=== PATIENT | male | born 1990 | race Caucasian/White ===

== ENCOUNTER 2016-05-15 23:24 | Emergency (ER) | payer BC ==
--- NOTE | 2016-05-16 01:08 | ED NURSING NOTES ---
Clinical Report - Nurses [facility] [address] [place] [address] 05/15/2016 23:24 [id number] TRI[facility] Triage time 23:32 May 15 2016. Acuity: LEVEL 3. Chief Complaint: (right flank pain). 23:38 05/15/16. MARGAUX COMA SCORE: Margaux Coma Scale: 15- eyes open spontaneously (4); best verbal response- oriented x 4 (5); best motor response- obeys commands (6). --23:38 Vonnie Stewart R.N. 23:38 05/15/16. BP: 139/90. HR: 71. RR: 18. O2 saturation: 100%. Temp: 97.9 F. Pain level now 5/10. --23:38 Vonnie Stewart R.N. Weight: 86.1 kg stated. Height/Length: 71 inches Per Patient. BMI: 26.5. --23:32 Vonnie Stewart R.N. Medications None. --23:37 Vonnie Stewart R.N. Allergies No Known Drug Allergy. --23:37 Vonnie Stewart R.N. Medication/allergy information source: the patient. --23:38 Vonnie Stewart R.N. History Arrived by private vehicle. Historian: patient. Accompanied by family. Onset. (last Sunday). ( Pain fairly constant with degrees of intensity, worse tonight making him double over in pain. Reports some hematuria.). 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 SOCIAL HX: Never smoker. Occasional alcohol use. No drug use. No infectious disease exposure. ABUSE ASSESSMENT: No report of abuse. SELF HARM ASSESSMENT: A self harm assessment was performed. The patient answered "no" to the question "Have you recently felt down, depressed, or hopeless?", "Have you noticed less interest or pleasure in doing things?", "Do you have thoughts of harming or killing yourself?", "Are you here because you tried to hurt yourself?", "Have you ever tried to hurt yourself before today?", "Have you recently had thoughts about harming or killing others?" and "Do you have any dangerous items in your possession?". NUTRITIONAL RISK ASSESSMENT: The nutritional risk assessment revealed no deficiencies. FUNCTIONAL ASSESSMENT: Functional assessment: no impairments noted. LEARNING NEEDS ASSESSMENT: The learning needs assessment revealed no barriers. SKIN INTEGRITY ASSESSMENT: Skin integrity risk assessment completed. No skin integrity risk identified. --23:38 Vonnie Stewart R.N. PROBLEMS: The following entry was modified by Annabella Calderon MD, 00:20 Reason - not a chronic medical problem <<STRICKEN ENTRY-- Pharyngitis. --07:25 Annabella Calderon MD --END STRIKE>>. ADDITIONAL SURGERIES: Dental Surgery. --23:38 Vonnie Stewart R.N. Interventions ID band on patient. --23:38 Vonnie Stewart R.N. PHYSICAL ASSESSMENT Ambulatory to room. ( scattered small circular bruises all over body, consistant with paint ball vazquez (pt reports playing paint ball 3 days ago)). GENERAL / NEURO / PSYCH: Alert. Oriented X 4. Appears in no acute distress. HEENT: Pupils equal, round and reactive to light. No facial asymmetry noted. Mucous membranes are pink. RESPIRATORY: Respirations not labored. Chest nontender. Breath sounds within normal limits. CVS: Pulses within normal limits. GI / : ( right flank pain, constant, no cvs tenderness). Abdomen soft and nontender and normal bowel sounds. SKIN: Skin intact. Skin is warm and dry. Normal skin turgor. --23:58 Vonnie Stewart R.N. NURSING PROGRESS NOTES 23:32 05/15/16. The initial plan of care for this patient includes an assessment with efforts to address the presence of pain; impairment of the genitourinary system. This plan of care was discussed with the patient. Patient gowned. Reassurance given. Two patient identifiers checked. Call light placed in reach. Side rails up x 1. Bed placed in lowest position. Brakes of bed on. Patient ready for evaluation. --23:53 Vonnie Stewart R.N. 23:53 05/15/16. Patient ID band checked for patient name and birthdate: patient confirmed. Instructions provided to collect clean catch urine and patient verbalized understanding. Clean catch urine collected with return of yellow-colored urine; sample sent to lab for urinalysis. Specimen labeled in the presence of the patient. --23:53 Vonnie Stewart R.N. 00:23 05/16/16. --00:23 Vonnie Stewart R.N. 00:24 05/16/16. Patient transported to [place] by stretcher. (00:May 16 2016). --00:24 Vonnie Stewart R.N. 00:36 05/16/2016 Toradol (Ketorolac Tromethamine) IM 60 mg given. Given in the right gluteus amador. Allergies verified and confirmed 5 rights. --00:38 Vonnie Stewart R.N. 00:36 05/16/2016 Dilaudid (HYDROmorphone HCl PF) IM 1 mg given. Given in the right deltoid. Allergies verified, confirmed 5 rights and sedative warning given to the patient. --00:38 Vonnie Stewart R.N. Patient walked back to ED from CT. --00:39 Vonnie Stewart R.N. DISPOSITION / DISCHARGE 01:05/16/16. Condition at departure: improved and stable. The goals identified in the patient's plan of care were met. --01:18 Vonnie Stewart R.N. 01:05/16/16. BP: 122/87. HR: 77. RR: 16. O2 saturation: 100%. Temp: 98.0 F. Pain level now 3/10. --01:18 Vonnie Stewart R.N. 01:05/16/16. Departure time: :May 16 2016. No learning barriers present. Discharge instructions provided and reviewed with the patient. Reviewed medication(s) side effects, precautions, dosing and course information. Prescription(s) given to the patient. Patient verbalized understanding. Written instructions provided in Tuvaluan. The patient was discharged home and accompanied by family. He left the Emergency Department ambulatory and via private vehicle. Parent driving. --01:24 Vonnie Stewart R.N. Locked/Released at 05/16/2016 1:25 by Vonnie Stewart R.N.
--- NOTE | 2016-05-16 01:08 | ED CLINICAL REPORT ---
Clinical Report - Physicians/Mid Levels [facility] [address] [place] [address] 05/15/2016 23:24 Patient: KATE DOWNS Time Seen: 23:31. Arrived- By private vehicle. Historian- patient. HISTORY OF PRESENT ILLNESS Chief Complaint: R flank pain. It is described as being moderate in degree and in the area of the right flank. The quality is noted to be "pain". No radiation. Onset- about 2 days ago and it is still present. Modifying factors. Not worsened by anything. Not relieved by anything. No bladder dysfunction, bowel dysfunction, sensory loss or motor loss. Additional history - PT states that he has episodes of the pain significantly increasing, which then pass on their own. This is what prompted his visit tonight. Patient notes the possibility of an injury (Pt was playing [employer] the day before this started, but got hit on the L side, not the right.). No other injury. Similar symptoms previously: None. Recent medical care: Not recently seen/assessed. REVIEW OF SYSTEMS No fever, chills, headache, sore throat or cough. No difficulty breathing, chest pain, skin rash, abdominal pain or vomiting. No diarrhea, black stools, difficulty with urination, urinary frequency or bloody stools. The patient has had nausea (- gone). The patient has had hematuria. All systems otherwise negative, except as recorded above. PAST HISTORY Problems: no known problems. Additional Surgeries: Dental Surgery. Medications: None. Allergies: No Known Drug Allergy. SOCIAL HISTORY Never smoker. Occasional alcohol use. No drug use. ADDITIONAL NOTES The nursing notes have been reviewed. PHYSICAL EXAM Vital Signs: 05/15/2016 23:38 BP: 139/90. HR: 71. RR: 18. O2 saturation: 100%. Temp: 97.9 F. Have been reviewed. Appearance: Alert. No acute distress. HEENT: Normal external inspection. Eyes: Pupils equal, round and reactive to light. Neck: Normal inspection. Neck nontender. Painless ROM. CVS: Normal heart rate and rhythm. Heart sounds normal. Pulses normal. Respiratory: No respiratory distress. Breath sounds normal. Abdomen: Normal inspection. Soft and nontender. Back: Normal inspection. No tenderness. Painless ROM. Skin: Skin warm and dry. Normal skin color. No rash. Normal skin turgor. Extremities: Extremities exhibit normal ROM. Extremities nontender. Neuro: Oriented X 3. Mood/affect normal. No motor deficit. No sensory deficit. LABS, X-RAYS, AND EKG CT Abdomen - Pelvis: Normal aorta. Normal liver, spleen, pancreas, gallbladder and adrenals. A single urinary calculus is present in the right proximal ureter (3 mm). There is mild obstruction. Bladder normal. Appendix normal. No mass. No free fluid. No bony lesion. No diverticulitis. Study type: renal stone evaluation; upper abdomen; lower abdomen; pelvis. Abdomen - pelvic CT performed with IV contrast. The study was independently viewed by me, interpreted contemporaneously by me and discussed with the radiologist. Prior studies were not available for comparison. Laboratory Tests: UA-Culture if indicated: (BRIJESH: 05/15/2016 23:45) ( MsgRcvd 05/15/2016 23:59) Final results Test Result Flag Units (Reference) URINE COLOR YELLOW URINE APPEARANCE SL CLOUDY URINE GLUCOSE NEGATIVE (NEGATIVE) URINE BILIRUBIN NEGATIVE (NEGATIVE) URINE KETONE NEGATIVE (NEGATIVE) URINE SPECIFIC GRAVITY 1.025 (1.010-1.030) URINE PH 6.0 (5.0-8.0) URINE PROTEIN TRACE (NEGATIVE) URINE UROBILINOGEN 0.2 EU/dL (0.2-1.0) URINE NITRITE NEGATIVE (NEGATIVE) URINE BLOOD 3+ (NEGATIVE) URINE LEUK ESTERASE NEGATIVE (NEGATIVE) URINE RBC 50-75 rbc/hpf (0-1) URINE WBC 3-5 wbc/hpf (0-1) URINE EPITHELIAL CELLS 1-3 EPI/hpf (0-5) URINE BACTERIA NONE SEEN (NONE SEEN) URINE COMMENT CULT NOT INDICATED URINE CULTURES ARE SET-UP BASED ON THE FOLLOWING CRITERIA:POSITIVE NITRITEPOSITIVE LEUKOCYTE ESTERASEGREATER THAN 10 WHITE BLOOD CELLSMODERATE (2+) OR GREATER BACTERIA . Pulse Oximetry: 05/15/2016 23:38 O2 saturation: 100%. (FIO2 - room air). Interpretation: normal. PROGRESS AND PROCEDURES Course of Care: Pt was given IM Toradol and Dilaudid, and worked up for his R flank pain. UA showed hematuria, and CT showed a 3 mm stone in the R proximal ureter. Patient and mother counseled in person regarding the patient's stable condition, test results, diagnosis and need for follow-up. Parental concerns were addressed. Old medical records reviewed. Disposition: Discharged. Condition: stable. CLINICAL IMPRESSION Right nephrolithiasis with renal colic. INSTRUCTIONS (Your CT scan shows a 3 mm stone which is coming down on the right side. It is still fairly high up, but at that size, should be passable without difficulty. No other stones are seen in your kidneys.). Warnings: SEDATIVE MEDICATION: You were given sedative medication during your visit. Do not drive or operate dangerous machinery for 6 hours. GENERAL WARNINGS: Return or contact your physician immediately if your condition worsens or changes unexpectedly, if not improving as expected, or if other problems arise. Prescription Medications: Hydrocodone/APAP 5mg / 325mg: take 1-2 orally every 4 hours as needed for pain. Dispense twenty (20). No refill. Zofran (orally disintegrating tablets) 4 mg: take 1-2 orally every 6 hours as needed for nausea. Dispense fifteen (15). No refill. Substitution is permissible. Understanding of the discharge instructions verbalized by patient and parent. Follow-up with: Sandeep Haji MD, Urology, , [address] [address]; Rinku Cali MD, Urology, , [address] [address] Follow up in three weeks if not better. Call for an appointment. (Electronically signed by Annabella Calderon MD 05/16/2016 5:11)
--- NOTE | 2016-05-16 01:08 | ED ORDER SUMMARY ---
..... Patient: KATE DOWNS OrderSheet [facility] VisitID: [id number] [address] [place] [address] 26y, M Registration Date/Time: 05/15/2016 ORDER SHEET Weight: 86.1 kg (stated) Allergies: No Known Drug Allergy GENERAL ORDERS: UA-Culture if indicated Urgent (23:44 05/15/2016 EIradha R.NRui verbal order read back to Malik RAY) (Ack 23:55 LMuller) (0:21 LMuller) CT Abd/Pel wo Cont Urgent (00:17 05/16/2016 Malik RAY) (0:21 LMuller) MEDICATION ORDERS: Toradol IM 60 mg (NOW) (00:18 05/16/2016 Malik RAY) (0:38 EInderbitzen R.N.) Dilaudid IM 1 mg (HIGH ALERT MEDICATION, NOW) (00:05/16/2016 Malik RAY) (0:38 EIndjosias R.N.) IV FLUIDS: ORDER SHEET NOTES: [Electronically signed by Vonnie Stewart R.N. (:05/16/2016)] [Electronically signed by Annabella Calderon MD (05:11 05/16/2016)] [Electronically locked/signed by Vonnie Stewart R.N. (05/16/2016)]
--- NOTE | 2016-05-16 01:08 | ED NURSING NOTES ---
Clinical Report - Nurses [facility] [address] [place] [address] 05/15/2016 23:24 [id number] TRI[facility] Triage time 23:32 May 15 2016. Acuity: LEVEL 3. Chief Complaint: (right flank pain). 23:38 05/15/16. MARGAUX COMA SCORE: Margaux Coma Scale: 15- eyes open spontaneously (4); best verbal response- oriented x 4 (5); best motor response- obeys commands (6). --23:38 Vonnie Stewart R.N. 23:38 05/15/16. BP: 139/90. HR: 71. RR: 18. O2 saturation: 100%. Temp: 97.9 F. Pain level now 5/10. --23:38 Vonnie Stewart R.N. Weight: 86.1 kg stated. Height/Length: 71 inches Per Patient. BMI: 26.5. --23:32 Vonnie Stewart R.N. Medications None. --23:37 Vonnie Stewart R.N. Allergies No Known Drug Allergy. --23:37 Vonnie Stewart R.N. Medication/allergy information source: the patient. --23:38 Vonnie Stewart R.N. History Arrived by private vehicle. Historian: patient. Accompanied by family. Onset. (last Sunday). ( Pain fairly constant with degrees of intensity, worse tonight making him double over in pain. Reports some hematuria.). 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 Occasional alcohol use. No drug use. No infectious disease exposure. ABUSE ASSESSMENT: No report of abuse. SELF HARM ASSESSMENT: A self harm assessment was performed. The patient answered "no" to the question "Have you recently felt down, depressed, or hopeless?", "Have you noticed less interest or pleasure in doing things?", "Do you have thoughts of harming or killing yourself?", "Are you here because you tried to hurt yourself?", "Have you ever tried to hurt yourself before today?", "Have you recently had thoughts about harming or killing others?" and "Do you have any dangerous items in your possession?". NUTRITIONAL RISK ASSESSMENT: The nutritional risk assessment revealed no deficiencies. FUNCTIONAL ASSESSMENT: Functional assessment: no impairments noted. LEARNING NEEDS ASSESSMENT: The learning needs assessment revealed no barriers. SKIN INTEGRITY ASSESSMENT: Skin integrity risk assessment completed. No skin integrity risk identified. --23:38 Vonnie Stewart R.N. PROBLEMS: The following entry was modified by Annabella Calderon MD, 00:20 Reason - not a chronic medical problem <<STRICKEN ENTRY-- Pharyngitis. --07:25 Annabella Calderon MD --END STRIKE>>. ADDITIONAL SURGERIES: Dental Surgery. --23:38 Vonnie Stewart R.N. Interventions ID band on patient. --23:38 Vonnie Stewart R.N. PHYSICAL ASSESSMENT Ambulatory to room. ( scattered small circular bruises all over body, consistant with paint ball vazquez (pt reports playing paint ball 3 days ago)). GENERAL / NEURO / PSYCH: Alert. Oriented X 4. Appears in no acute distress. HEENT: Pupils equal, round and reactive to light. No facial asymmetry noted. Mucous membranes are pink. RESPIRATORY: Respirations not labored. Chest nontender. Breath sounds within normal limits. CVS: Pulses within normal limits. GI / : ( right flank pain, constant, no cvs tenderness). Abdomen soft and nontender and normal bowel sounds. SKIN: Skin intact. Skin is warm and dry. Normal skin turgor. --23:58 Vonnie Stewart R.N. NURSING PROGRESS NOTES 23:32 05/15/16. The initial plan of care for this patient includes an assessment with efforts to address the presence of pain; impairment of the genitourinary system. This plan of care was discussed with the patient. Patient gowned. Reassurance given. Two patient identifiers checked. Call light placed in reach. Side rails up x 1. Bed placed in lowest position. Brakes of bed on. Patient ready for evaluation. --23:53 Vonnie Stewart R.N. 23:53 05/15/16. Patient ID band checked for patient name and birthdate: patient confirmed. Instructions provided to collect clean catch urine and patient verbalized understanding. Clean catch urine collected with return of yellow-colored urine; sample sent to lab for urinalysis. Specimen labeled in the presence of the patient. --23:53 Vonnie Stewart R.N. 00:23 05/16/16. --00:23 Vonnie Stewart R.N. 00:24 05/16/16. Patient transported to [place] by stretcher. (00:May 16 2016). --00:24 Vonnie Stewart R.N. 00:36 05/16/2016 Toradol (Ketorolac Tromethamine) IM 60 mg given. Given in the right gluteus amador. Allergies verified and confirmed 5 rights. --00:38 Vonnie Stewart R.N. 00:36 05/16/2016 Dilaudid (HYDROmorphone HCl PF) IM 1 mg given. Given in the right deltoid. Allergies verified, confirmed 5 rights and sedative warning given to the patient. --00:38 Vonnie Stewart R.N. Patient walked back to ED from CT. --00:39 Vonnie Stewart R.N. DISPOSITION / DISCHARGE 01:05/16/16. Condition at departure: improved and stable. The goals identified in the patient's plan of care were met. --01:18 Vonnie Stewart R.N. 01:05/16/16. BP: 122/87. HR: 77. RR: 16. O2 saturation: 100%. Temp: 98.0 F. Pain level now 3/10. --01:18 Vonnie Stewart R.N. 01:05/16/16. Departure time: :May 16 2016. No learning barriers present. Discharge instructions provided and reviewed with the patient. Reviewed medication(s) side effects, precautions, dosing and course information. Prescription(s) given to the patient. Patient verbalized understanding. Written instructions provided in American. The patient was discharged home and accompanied by family. He left the Emergency Department ambulatory and via private vehicle. Parent driving. --01:24 Vonnie Stewart R.N. Locked/Released at 05/16/2016 1:25 by Vonnie Stewart R.N.
--- NOTE | 2016-05-16 01:08 | ED ORDER SUMMARY ---
..... Patient: KATE DOWNS OrderSheet [facility] VisitID: [id number] [address] [place] [address] 26y, M Registration Date/Time: 05/15/2016 ORDER SHEET Weight: 86.1 kg (stated) Allergies: No Known Drug Allergy GENERAL ORDERS: UA-Culture if indicated Urgent (23:44 05/15/2016 EIradha R.NRui verbal order read back to Malik RAY) (Ack 23:55 LMuller) (0:21 LMuller) CT Abd/Pel wo Cont Urgent (00:17 05/16/2016 Malik RAY) (0:21 LMuller) MEDICATION ORDERS: Toradol IM 60 mg (NOW) (00:18 05/16/2016 Malik RAY) (0:38 EInderbitzen R.N.) Dilaudid IM 1 mg (HIGH ALERT MEDICATION, NOW) (00:05/16/2016 Malik RAY) (0:38 EIndjosias R.N.) IV FLUIDS: ORDER SHEET NOTES: [Electronically signed by Vonnie Stewart R.N. (:05/16/2016)] [Electronically signed by Annabella Calderon MD (05:11 05/16/2016)] [Electronically locked/signed by Vonnie Stewart R.N. (05/16/2016)]
--- NOTE | 2016-05-16 01:08 | ED CLINICAL REPORT ---
Clinical Report - Physicians/Mid Levels [facility] [address] [place] [address] 05/15/2016 23:24 Patient: KATE DOWNS Time Seen: 23:31. Arrived- By private vehicle. Historian- patient. HISTORY OF PRESENT ILLNESS Chief Complaint: R flank pain. It is described as being moderate in degree and in the area of the right flank. The quality is noted to be "pain". No radiation. Onset- about 2 days ago and it is still present. Modifying factors. Not worsened by anything. Not relieved by anything. No bladder dysfunction, bowel dysfunction, sensory loss or motor loss. Additional history - PT states that he has episodes of the pain significantly increasing, which then pass on their own. This is what prompted his visit tonight. Patient notes the possibility of an injury (Pt was playing [employer] the day before this started, but got hit on the L side, not the right.). No other injury. Similar symptoms previously: None. Recent medical care: Not recently seen/assessed. REVIEW OF SYSTEMS No fever, chills, headache, sore throat or cough. No difficulty breathing, chest pain, skin rash, abdominal pain or vomiting. No diarrhea, black stools, difficulty with urination, urinary frequency or bloody stools. The patient has had nausea (- gone). The patient has had hematuria. All systems otherwise negative, except as recorded above. PAST HISTORY Problems: no known problems. Additional Surgeries: Dental Surgery. Medications: None. Allergies: No Known Drug Allergy. SOCIAL HISTORY Never smoker. Occasional alcohol use. No drug use. ADDITIONAL NOTES The nursing notes have been reviewed. PHYSICAL EXAM Vital Signs: 05/15/2016 23:38 BP: 139/90. HR: 71. RR: 18. O2 saturation: 100%. Temp: 97.9 F. Have been reviewed. Appearance: Alert. No acute distress. HEENT: Normal external inspection. Eyes: Pupils equal, round and reactive to light. Neck: Normal inspection. Neck nontender. Painless ROM. CVS: Normal heart rate and rhythm. Heart sounds normal. Pulses normal. Respiratory: No respiratory distress. Breath sounds normal. Abdomen: Normal inspection. Soft and nontender. Back: Normal inspection. No tenderness. Painless ROM. Skin: Skin warm and dry. Normal skin color. No rash. Normal skin turgor. Extremities: Extremities exhibit normal ROM. Extremities nontender. Neuro: Oriented X 3. Mood/affect normal. No motor deficit. No sensory deficit. LABS, X-RAYS, AND EKG CT Abdomen - Pelvis: Normal aorta. Normal liver, spleen, pancreas, gallbladder and adrenals. A single urinary calculus is present in the right proximal ureter (3 mm). There is mild obstruction. Bladder normal. Appendix normal. No mass. No free fluid. No bony lesion. No diverticulitis. Study type: renal stone evaluation; upper abdomen; lower abdomen; pelvis. Abdomen - pelvic CT performed with IV contrast. The study was independently viewed by me, interpreted contemporaneously by me and discussed with the radiologist. Prior studies were not available for comparison. Laboratory Tests: UA-Culture if indicated: (BRIJESH: 05/15/2016 23:45) ( MsgRcvd 05/15/2016 23:59) Final results Test Result Flag Units (Reference) URINE COLOR YELLOW URINE APPEARANCE SL CLOUDY URINE GLUCOSE NEGATIVE (NEGATIVE) URINE BILIRUBIN NEGATIVE (NEGATIVE) URINE KETONE NEGATIVE (NEGATIVE) URINE SPECIFIC GRAVITY 1.025 (1.010-1.030) URINE PH 6.0 (5.0-8.0) URINE PROTEIN TRACE (NEGATIVE) URINE UROBILINOGEN 0.2 EU/dL (0.2-1.0) URINE NITRITE NEGATIVE (NEGATIVE) URINE BLOOD 3+ (NEGATIVE) URINE LEUK ESTERASE NEGATIVE (NEGATIVE) URINE RBC 50-75 rbc/hpf (0-1) URINE WBC 3-5 wbc/hpf (0-1) URINE EPITHELIAL CELLS 1-3 EPI/hpf (0-5) URINE BACTERIA NONE SEEN (NONE SEEN) URINE COMMENT CULT NOT INDICATED URINE CULTURES ARE SET-UP BASED ON THE FOLLOWING CRITERIA:POSITIVE NITRITEPOSITIVE LEUKOCYTE ESTERASEGREATER THAN 10 WHITE BLOOD CELLSMODERATE (2+) OR GREATER BACTERIA . Pulse Oximetry: 05/15/2016 23:38 O2 saturation: 100%. (FIO2 - room air). Interpretation: normal. PROGRESS AND PROCEDURES Course of Care: Pt was given IM Toradol and Dilaudid, and worked up for his R flank pain. UA showed hematuria, and CT showed a 3 mm stone in the R proximal ureter. Patient and mother counseled in person regarding the patient's stable condition, test results, diagnosis and need for follow-up. Parental concerns were addressed. Old medical records reviewed. Disposition: Discharged. Condition: stable. CLINICAL IMPRESSION Right nephrolithiasis with renal colic. INSTRUCTIONS (Your CT scan shows a 3 mm stone which is coming down on the right side. It is still fairly high up, but at that size, should be passable without difficulty. No other stones are seen in your kidneys.). Warnings: SEDATIVE MEDICATION: You were given sedative medication during your visit. Do not drive or operate dangerous machinery for 6 hours. GENERAL WARNINGS: Return or contact your physician immediately if your condition worsens or changes unexpectedly, if not improving as expected, or if other problems arise. Prescription Medications: Hydrocodone/APAP 5mg / 325mg: take 1-2 orally every 4 hours as needed for pain. Dispense twenty (20). No refill. Zofran (orally disintegrating tablets) 4 mg: take 1-2 orally every 6 hours as needed for nausea. Dispense fifteen (15). No refill. Substitution is permissible. Understanding of the discharge instructions verbalized by patient and parent. Follow-up with: Sandeep Haji MD, Urology, , [address] [address]; Rinku Cali MD, Urology, , [address] [address] Follow up in three weeks if not better. Call for an appointment. (Electronically signed by Annabella Calderon MD 05/16/2016 5:11)
--- NOTE | 2016-05-16 05:11 | ED DISCHARGE INSTRUCTIONS ---
Patient: KATE DOWNS General Instructions [facility] VisitID: [id number] [place] [address] 26y, M Registration Date/Time: 05/15/2016 Right nephrolithiasis with renal colic. INSTRUCTIONS (Your CT scan shows a 3 mm stone which is coming down on the right side. It is still fairly high up, but at that size, should be passable without difficulty. No other stones are seen in your kidneys.). Warnings: SEDATIVE MEDICATION: You were given sedative medication during your visit. Do not drive or operate dangerous machinery for 6 hours. GENERAL WARNINGS: Return or contact your physician immediately if your condition worsens or changes unexpectedly, if not improving as expected, or if other problems arise. Prescription Medications: Hydrocodone/APAP 5mg / 325mg: take 1-2 orally every 4 hours as needed for pain. Dispense twenty (20). No refill. Zofran (orally disintegrating tablets) 4 mg: take 1-2 orally every 6 hours as needed for nausea. Dispense fifteen (15). No refill. Substitution is permissible. Understanding of the discharge instructions verbalized by patient and parent. Follow-up with: Sandeep Haji MD, Urology, , [address] [address]; Rinku Cali MD, Urology, , [address] [address] Follow up in three weeks if not better. Call for an appointment. ADDITIONAL INFORMATION Kidney Stone (W/ Colic) The sharp cramping pain and nausea/vomiting that you have is due to a small stone which has formed in the kidney and is now passing down a narrow tube (ureter) on its way to your bladder. Once it reaches your bladder, the pain will stop. The stone may pass in your urine stream in one piece. [The size may be 1/16" to 1/4" (1-6mm)]. Or, the stone may also break up into daniel fragments which you may not even notice. Once you have had a kidney stone, you are at risk for developing another one in the future. Home Care: Drink plenty of fluids (at least 8 to 10 glasses of water a day). Most stones will pass on their own, but may take from a few hours to a few days. Sometimes the stone is too large to pass by itself and special methods will have to be used to remove the stone. Each time you urinate, do so in a jar. Pour the urine from the jar through the strainer and into the toilet. Continue doing this until 24 hours after your pain stops. By then, if there was a kidney stone, it should pass from your bladder. Some stones dissolve into sand-like particles and pass right through the strainer. In that case, you wont ever see a stone. Save any stone that you find in the strainer and bring it to your doctor for analysis. It may be possible to prevent certain types of stones from forming. Therefore, it is important to know what kind of stone you have. Try to stay as active as possible since this will help the stone pass. Do not stay in bed unless your pain prevents you from getting up. You may notice a red, pink or brown color to your urine. This is normal while passing a kidney stone. Follow Up with your doctor or return to this facility if the pain lasts more than 48 hours. Get Prompt Medical Attention if any of the following occur: Pain that is not controlled by the medicine given Repeated vomiting or unable to keep down fluids Weakness, dizziness or fainting Fever of 100.4F (38C) or higher, or as directed by your healthcare provider Passage of solid red or brown urine (can't see through it) or urine with lots of blood clots Unable to pass urine for 8 hours and increasing bladder pressure You have been given the following additional information: Kidney Stone W/ Colic (Electronically signed by Annabella Calderon MD 05/16/2016 5:11)
--- NOTE | 2016-05-16 05:11 | ED MED RECONCILIATION SUMMARY ---
Patient: KATE DOWNS Medication Reconciliation Report [facility] VisitID: [id number] [address] [place] [address] 26y, M Registration Date/Time: 05/15/2016 Weight: 86.1 kg Height/Length: 71 in. BMI: 26.5 ALLERGIES: No Known Drug Allergy The patient's Home Medications are listed below: NONE. The source(s) of the original Home Medication information: patient The following Medications were given to the patient in the Emergency Department: Toradol [IM] IM 60 mg, administered: 05/16/2016 12:36:00 AM Dilaudid [IM] IM 1 mg, administered: 05/16/2016 12:36:00 AM The following Medications were prescribed to the patient: Hydrocodone/APAP 5mg / 325mg: take 1-2 orally every 4 hours as needed for pain. Dispense twenty (20). No refill. -- Annabella Calderon MD Zofran (orally disintegrating tablets) 4 mg: take 1-2 orally every 6 hours as needed for nausea. Dispense fifteen (15). No refill. Substitution is permissible. -- Annabella Calderon MD
--- NOTE | 2016-05-16 05:11 | ED DISCHARGE INSTRUCTIONS ---
Patient: KATE DOWNS General Instructions [facility] VisitID: [id number] [place] [address] 26y, M Registration Date/Time: 05/15/2016 Right nephrolithiasis with renal colic. INSTRUCTIONS (Your CT scan shows a 3 mm stone which is coming down on the right side. It is still fairly high up, but at that size, should be passable without difficulty. No other stones are seen in your kidneys.). Warnings: SEDATIVE MEDICATION: You were given sedative medication during your visit. Do not drive or operate dangerous machinery for 6 hours. GENERAL WARNINGS: Return or contact your physician immediately if your condition worsens or changes unexpectedly, if not improving as expected, or if other problems arise. Prescription Medications: Hydrocodone/APAP 5mg / 325mg: take 1-2 orally every 4 hours as needed for pain. Dispense twenty (20). No refill. Zofran (orally disintegrating tablets) 4 mg: take 1-2 orally every 6 hours as needed for nausea. Dispense fifteen (15). No refill. Substitution is permissible. Understanding of the discharge instructions verbalized by patient and parent. Follow-up with: Sandeep Haji MD, Urology, , [address] [address]; Rinku Cali MD, Urology, , [address] [address] Follow up in three weeks if not better. Call for an appointment. ADDITIONAL INFORMATION Kidney Stone (W/ Colic) The sharp cramping pain and nausea/vomiting that you have is due to a small stone which has formed in the kidney and is now passing down a narrow tube (ureter) on its way to your bladder. Once it reaches your bladder, the pain will stop. The stone may pass in your urine stream in one piece. [The size may be 1/16" to 1/4" (1-6mm)]. Or, the stone may also break up into daniel fragments which you may not even notice. Once you have had a kidney stone, you are at risk for developing another one in the future. Home Care: Drink plenty of fluids (at least 8 to 10 glasses of water a day). Most stones will pass on their own, but may take from a few hours to a few days. Sometimes the stone is too large to pass by itself and special methods will have to be used to remove the stone. Each time you urinate, do so in a jar. Pour the urine from the jar through the strainer and into the toilet. Continue doing this until 24 hours after your pain stops. By then, if there was a kidney stone, it should pass from your bladder. Some stones dissolve into sand-like particles and pass right through the strainer. In that case, you wont ever see a stone. Save any stone that you find in the strainer and bring it to your doctor for analysis. It may be possible to prevent certain types of stones from forming. Therefore, it is important to know what kind of stone you have. Try to stay as active as possible since this will help the stone pass. Do not stay in bed unless your pain prevents you from getting up. You may notice a red, pink or brown color to your urine. This is normal while passing a kidney stone. Follow Up with your doctor or return to this facility if the pain lasts more than 48 hours. Get Prompt Medical Attention if any of the following occur: Pain that is not controlled by the medicine given Repeated vomiting or unable to keep down fluids Weakness, dizziness or fainting Fever of 100.4F (38C) or higher, or as directed by your healthcare provider Passage of solid red or brown urine (can't see through it) or urine with lots of blood clots Unable to pass urine for 8 hours and increasing bladder pressure You have been given the following additional information: Kidney Stone W/ Colic (Electronically signed by Annabella Calderon MD 05/16/2016 5:11)
--- NOTE | 2016-05-16 05:11 | ED MAR SUMMARY ---
..... Medication Administration Record [facility] [address] [place] [address] Patient: KATE DOWNS Visit ID: [id number] 26y, M Weight: 86.1 kg Height/Length: 71 in BMI: 26.5 ALLERGIES: No Known Drug Allergy Given 00:36 05/16/2016 Vonnie Stewart R.N. Medication Administered: TORADOL [IM] (KETOROLAC TROMETHAMINE), Dose: 60 mg IM. Medication Ordered: Toradol IM 60 mg (NOW). Given 00:36 05/16/2016 Vonnie Stewart R.NRui Medication Administered: DILAUDID [IM] (HYDROMORPHONE HCL PF), Dose: 1 mg IM. Medication Ordered: Dilaudid IM 1 mg (HIGH ALERT MEDICATION, NOW).
--- NOTE | 2016-05-16 05:11 | ED MED RECONCILIATION SUMMARY ---
Patient: KATE DOWNS Medication Reconciliation Report [facility] VisitID: [id number] [address] [place] [address] 26y, M Registration Date/Time: 05/15/2016 Weight: 86.1 kg Height/Length: 71 in. BMI: 26.5 ALLERGIES: No Known Drug Allergy The patient's Home Medications are listed below: NONE. The source(s) of the original Home Medication information: patient The following Medications were given to the patient in the Emergency Department: Toradol [IM] IM 60 mg, administered: 05/16/2016 12:36:00 AM Dilaudid [IM] IM 1 mg, administered: 05/16/2016 12:36:00 AM The following Medications were prescribed to the patient: Hydrocodone/APAP 5mg / 325mg: take 1-2 orally every 4 hours as needed for pain. Dispense twenty (20). No refill. -- Annabella Calderon MD Zofran (orally disintegrating tablets) 4 mg: take 1-2 orally every 6 hours as needed for nausea. Dispense fifteen (15). No refill. Substitution is permissible. -- Annabella Calderon MD
--- NOTE | 2016-05-16 05:11 | ED MAR SUMMARY ---
..... Medication Administration Record [facility] [address] [place] [address] Patient: KATE DOWNS Visit ID: [id number] 26y, M Weight: 86.1 kg Height/Length: 71 in BMI: 26.5 ALLERGIES: No Known Drug Allergy Given 00:36 05/16/2016 Vonnie Stewart R.N. Medication Administered: TORADOL [IM] (KETOROLAC TROMETHAMINE), Dose: 60 mg IM. Medication Ordered: Toradol IM 60 mg (NOW). Given 00:36 05/16/2016 Vonnie Stewart R.NRui Medication Administered: DILAUDID [IM] (HYDROMORPHONE HCL PF), Dose: 1 mg IM. Medication Ordered: Dilaudid IM 1 mg (HIGH ALERT MEDICATION, NOW).
--- NOTE | 2016-05-16 07:21 | DIAGNOSTIC IMAGING REPORT ---
PROCEDURE: CT ABDOMEN/PELVIS W/O CONTRAST INDICATION: Right flank pain. TECHNIQUE: Noncontrast axial images with sagittal and coronal preliminary report provided by Vero English MD ([facility]). COMPARISON: None. FINDINGS: ABDOMEN: There is mild right hydronephrosis secondary to a 3 mm proximal ureteral calculus. Right kidney (13.5 cm) is otherwise normal. Left kidney ( 12.7 cm) and ureter are normal. Gallbladder, liver, spleen, pancreas, and aorta are normal. Bowel pattern is normal, including appendix. PELVIS: Mild enlargement prostate (5.0 cm). Pelvic structures are otherwise normal. IMPRESSION: 1. Mild right hydronephrosis secondary to a 3 mm right proximal ureteral calculus. 2. Mild enlargement of the prostate (5.0 cm). All CT scans at this facility use dose modulation, iterative reconstruction, and/or weight-based dosing when appropriate to reduce radiation dose to as low as reasonably achievable.
--- NOTE | 2016-05-16 07:21 | DIAGNOSTIC IMAGING REPORT ---
PROCEDURE: CT ABDOMEN/PELVIS W/O CONTRAST INDICATION: Right flank pain. TECHNIQUE: Noncontrast axial images with sagittal and coronal preliminary report provided by Vero English MD ([facility]). COMPARISON: None. FINDINGS: ABDOMEN: There is mild right hydronephrosis secondary to a 3 mm proximal ureteral calculus. Right kidney (13.5 cm) is otherwise normal. Left kidney ( 12.7 cm) and ureter are normal. Gallbladder, liver, spleen, pancreas, and aorta are normal. Bowel pattern is normal, including appendix. PELVIS: Mild enlargement prostate (5.0 cm). Pelvic structures are otherwise normal. IMPRESSION: 1. Mild right hydronephrosis secondary to a 3 mm right proximal ureteral calculus. 2. Mild enlargement of the prostate (5.0 cm). All CT scans at this facility use dose modulation, iterative reconstruction, and/or weight-based dosing when appropriate to reduce radiation dose to as low as reasonably achievable.
== END 2016-05-16 04:12 | disposition home or self-care (01) ==
LOC: ED SRH 23:24
DX: N20.2 Calculus of kidney with calculus of ureter (principal)
CPT/HCPCS: 90004